=== PATIENT | female | born 1955 | race Caucasian/White ===

== ENCOUNTER 2017-10-30 14:09 | Emergency (ER) | payer MEDICAID ==
[2017-10-30 14:20] VITALS: BP 113/74; PULSE 75; TEMP 97.5; O2SAT 99
--- NOTE | 2017-10-30 14:53 | RAD ---
Date of service: 10/30/2017 PROCEDURE: Radiographs of the Right Shoulder HISTORY: pain COMPARISON: No prior. FINDINGS: BONES: No acute fracture. JOINTS: Etofilo clavicular joint degenerative changes. SOFT TISSUES: Normal. OTHER FINDINGS: None. IMPRESSION: No demonstrated fracture or dislocation. .
--- NOTE | 2017-10-30 15:07 | C.PDOC ---
History Of Present Illness 62 y/o female presents to ED for evaluation of right shoulder pain for the past week. Pt states pain developed a week ago after she tried to get up from sitting position on the floor, states she used her right hand to support herself to stand up. Pt reports taking Naproxen with some relief. Otherwise, denies weakness, numbness, change in sensation, fever, or any other associated symptoms at this time. Time Seen by Provider: 10/30/17 14:25 Chief Complaint (Nursing): Upper Extremity Problem/Injury History Per: Patient History/Exam Limitations: no limitations Onset/Duration Of Symptoms: Days Current Symptoms Are (Timing): Still Present Quality: "Pain" Exacerbating Factor(s): Nothing Recent travel outside of the [place]: No Additional History Per: Patient Past Medical History Reviewed: Historical Data, Nursing Documentation, Vital Signs Vital Signs: Last Vital Signs Temp 97.5 F L 10/30/17 14:16 Pulse 75 10/30/17 14:16 Resp 17 10/30/17 14:16 BP 113/74 10/30/17 14:16 Pulse Ox 99 10/30/17 15:11 - Medical History PMH: Arthritis (knees and foot), Diabetes ('newly diagnosed'), Fractures (left foot), HTN, Hypercholesterolemia Denies: Asthma, Bronchitis, COPD, Emphysema, Kidney Stones, Pneumonia, Pulmonary Embolism, Chronic Kidney Disease, Sexually Transmitted Disease, Sleep Apnea - [facility] Procedures INJECT/INFUSE NEC (05/02/13) Family History: States: Unknown Family Hx - Social History Hx Tobacco Use: No Hx Alcohol Use: No Hx Substance Use: No - Immunization History Hx Tetanus Toxoid Vaccination: No Hx Influenza Vaccination: No Hx Pneumococcal Vaccination: No Review Of Systems Except As Marked, All Systems Reviewed And Found Negative. Constitutional: Negative for: Fever, Chills Musculoskeletal: Positive for: Shoulder Pain (right) Skin: Negative for: Lesions, Bruising Neurological: Negative for: Weakness, Numbness Physical Exam - Physical Exam Appears: Non-toxic, No Acute Distress Skin: Normal Color, Warm, Dry, No Ecchymosis Head: Atraumatic, Normacephalic Eye(s): bilateral: Normal Inspection Oral Mucosa: Moist Extremity: No Normal ROM (decreased ROM of right shoulder secondary to pain), Tenderness (anterior aspect of right shoulder), Capillary Refill (less than 2 seconds), No Deformity, No Swelling Extremity: Bilateral: Normal Color And Temperature Pulses: Right Brachial: Normal, Right Radial: Normal Neurological/Psych: Oriented x3, Normal Speech, Normal Motor, Normal Sensation ED Course And Treatment O2 Sat by Pulse Oximetry: 99 (RA) Pulse Ox Interpretation: Normal - Other Rad Right shoulder Xray X-Ray: Viewed By Me, Read By Radiologist Interpretation: Accession No. : [id number]. Patient Name / ID : ROBIN OROPEZA K / [id number]. Exam Date : 10/30/2017 14:45:33 ( Approved ). Study Comment : Sex / Age : F / 62Y. Creator : Luigi Menchaca MD. Dictator : Luigi Menchaca MD. Senior Tax Analyst : [employer] Docent : Luigi Menchaca MD. Approver2 : Report Date : 10/30/2017 14:52:21. My Comment : . Date of service: 10/30/2017. PROCEDURE: Radiographs of the Right Shoulder. HISTORY: pain. COMPARISON: No prior. FINDINGS: BONES: No acute fracture. JOINTS: Teofilo clavicular joint degenerative changes. SOFT TISSUES: Normal. OTHER FINDINGS: None. IMPRESSION: No demonstrated fracture or dislocation. . Progress Note: Right shoulder Xray ordered and reviewed. Arm splint applied to right shoulder. Patient is being discharged home with instructions to follow up with orthopedist in 1-2 days. Disposition - Disposition Referrals: Michele Brady III, MD [Staff Provider] - Disposition: HOME/ ROUTINE Disposition Time: 16:01 Condition: STABLE Additional Instructions: Follow up with PMD and Orthopedist within 2-3 days. Return to ED if feel worse. Prescriptions: Naproxen [Naprosyn] 1 tab PO BID PRN #25 tab PRN Reason: Pain Instructions: Rotator Cuff Injury Forms: [employer] (Kyrgyz) - Clinical Impression Clinical Impression: Shoulder pain - PA / MEDICAL STAFF SERVICES COORDINATOR / Resident Statement MD/DO has reviewed & agrees with the documentation as recorded. - Scribe Statement The provider has reviewed the documentation as recorded by the Scribe KP All medical record entries made by the Scribe were at my direction and personally dictated by me. I have reviewed the chart and agree that the record accurately reflects my personal performance of the history, physical exam, medical decision making, and the department course for this patient. I have also personally directed, reviewed, and agree with the discharge instructions and disposition.
[2017-10-30 16:20] VITALS: RESP 20
== END 2017-10-30 16:19 | disposition home or self-care (01) ==
LOC: C.ER 14:09
DX: M25.511 Pain in right shoulder (principal)